=== PATIENT | male | born 1940 ===

== ENCOUNTER 2017-10-08 16:28 | Outpatient (CLI) | payer MEDICAID ==
[2017-10-08] MEDS ORDERED: BARIUM SULFATE 148 GM SUSP.RECON PO ONE (17:00)
[2017-10-08] MEDS ORDERED: BARIUM SULFATE 240 ML ORAL.SUSP PO ONE (17:00)
== END 2017-10-08 23:59 | disposition home or self-care (01) ==
LOC: RAD 16:28
PROVIDERS: ATTEND Radiology Diagnostic Radiology
DX: R13.10 Dysphagia, unspecified (principal)
CPT/HCPCS: 74230; 92611